=== PATIENT | female | born 1955 | race African-American/Black ===

== ENCOUNTER 2017-06-19 19:40 | Emergency (ER) | payer OTHER ==
[~2017-06-19 19:40] MED LIST: ADVIL200 M2 PO; AMLODIPINE BESYL5 MG PO; BAYER ASPIRIN325 M1 PO; TOPAMAX25 MG PO; TYLENOL325 M1 PO
== END 2017-06-19 22:42 | disposition home or self-care (01) ==
LOC: CED 19:40
DX: R51 Headache (principal); I10 Essential (primary) hypertension
CPT/HCPCS: 99283